=== PATIENT | male | born 1945 | race Caucasian/White ===

== ENCOUNTER 2017-05-27 09:30 | Inpatient (IN) | payer BC, OTHER ==
[~2017-05-27] VITALS: Ht 172.7 cm; Wt 98.9 kg
[2017-05-27 09:35] VITALS: BP_SYST 170
[2017-05-27] MEDS ORDERED: ROSU10TA PO (09:57)
[2017-05-27 10:17] LABS: BASOPHILS % (AUTO) 0.3 % (0.0-2.0); EOSINOPHILS # (AUTO) 0.2 K/uL (0.0-0.4); EOSINOPHILS % (AUTO) 4.2 % (0.0-4.0); HEMATOCRIT 50.1 % (36-54); HEMOGLOBIN 16.3 g/dL (14.0-18.0); LYMPHOCYTES # (AUTO) 2.2 K/uL (1.0-5.5); LYMPHOCYTES % (AUTO) 38.9 % (20.5-51.5); MEAN CORPUSCULAR HEMOGLOBIN 30 pg (27-31); MEAN CORPUSCULAR HGB CONC 33 % (32-36); MEAN CORPUSCULAR VOLUME 92 fL (79.0-98.0); MONOCYTES # (AUTO) 0.4 K/uL (0.0-1.0); MONOCYTES % (AUTO) 6.2 % (1.7-9.3); NEUTROPHILS # (AUTO) 2.9 K/uL (1.8-7.7); NEUTROPHILS % (AUTO) 50.4 % (40.0-70.0); PLATELET COUNT (AUTO) 252 K/uL (130-430); RED BLOOD CELL COUNT(AUTO) 5.46 MIL/uL (4.2-6.2); RED CELL DISTRIBUTION WIDTH 13.4 % (9.0-15.0); WHITE BLOOD COUNT (AUTO) 5.7 K/uL (4.8-10.8)
[2017-05-27 10:29] LABS: PROTHROMBIN TIME 9.7 SECS (9.5-12.5)
[2017-05-27] MEDS ORDERED: ASPIRIN 81 MG TAB.CHEW PO ONE (10:45)
[2017-05-27 11:00] LABS: ALBUMIN 4.1 g/dL (3.4-4.8); CALCIUM 9.7 mg/dL (8.4-11.0); CREATININE 0.98 mg/dL (0.55-1.30); FREE T4 (FREE THYROXINE) 0.9 ng/dl (0.8-1.5); POTASSIUM 3.6 mmol/L (3.5-5.1); TOTAL BILIRUBIN 0.4 mg/dL (0.0-1.0)
[2017-05-27 11:47] LABS: BILIRUBIN,URINE NEGATIVE (NEGATIVE); BLOOD, URINE NEGATIVE (NEGATIVE); CLARITY/URINE CLEAR (CLEAR); COLOR,URINE YELLOW (YELLOW); GLUCOSE,URINE NEGATIVE (NEGATIVE); KETONES,URINE NEGATIVE (NEGATIVE); LEUKOCYTE ESTERASE ,URINE NEGATIVE (NEGATIVE); NITRITE, URINE NEGATIVE (NEGATIVE); PROTEIN URINE NEGATIVE (NEGATIVE); UROBILINOGEN,URINE 0.2 (0.2-1.0)
[2017-05-27 12:02] LABS: BARBITURATE, URINE NEGATIVE (NEG <=200); BENZODIAZEPINE, URINE NEGATIVE (NEG <=150); CANNABINOID, URINE NEGATIVE (NEG <=50); COCAINE, URINE NEGATIVE (NEG <=150); METHAMPHETAMINES SCREEN,URINE NEGATIVE (NEG <=500); OPIATE, URINE NEGATIVE (NEG <=100); PHENCYCLIDINE SCREEN,URINE NEGATIVE (NEG <=25); URINE AMPHETAMINE NEGATIVE (NEG <=500); URINE METHADONE NEGATIVE (NEG <=200); URINE OXYCODONE SCREEN NEGATIVE (NEG <=100)
[2017-05-27 12:03] LABS: UR TRICYCLIC ANTIDEPRESSANTS NEGATIVE (NEG <=300); URINE PROPOXYPHENE SCREEN NEGATIVE (NEG <=300)
[2017-05-27 12:06] VITALS: BP_SYST 135
[2017-05-27] MEDS ORDERED: ASPI-1047 PO (12:17)
[2017-05-27] MEDS: SIMVASTATIN 20 MG TABLET PO SCH (14:30)
[2017-05-27 16:52] VITALS: BP_SYST 141
[2017-05-27 20:00] VITALS: BP_SYST 142
[2017-05-27] MEDS: METOPROLOL TARTRATE 25 MG TABLET PO SCH (21:24)
[2017-05-27] MEDS: ENOXAPARIN SODIUM 40 MG/0.4 ML SYRINGE SUBCUT SCH (21:25)
[2017-05-28] VITALS: BP_SYST 122
[2017-05-28 04:00] VITALS: BP_SYST 130
[2017-05-28 08:00] VITALS: BP_SYST 141
[2017-05-28] MEDS: METOPROLOL TARTRATE 25 MG TABLET PO SCH ×2 (08:17→20:49)
[2017-05-28] MEDS: ASPIRIN 81 MG TABLET(ECOTRIN) PO SCH (08:18)
[2017-05-28] MEDS: SIMVASTATIN 20 MG TABLET PO SCH (08:18)
[2017-05-28] MEDS ORDERED: ROSUVASTATIN CALCIUM 5 MG/TAB (CRESTOR) PO SCH (09:00)
[2017-05-28 11:40] VITALS: BP_SYST 132
[2017-05-28 16:34] VITALS: BP_SYST 135
[2017-05-28 20:00] VITALS: BP_SYST 140
[2017-05-28] MEDS: ENOXAPARIN SODIUM 40 MG/0.4 ML SYRINGE SUBCUT SCH (20:48)
[2017-05-29 00:38] VITALS: BP_SYST 129
[2017-05-29 04:56] VITALS: BP_SYST 123
[2017-05-29 08:05] VITALS: BP_SYST 135
[2017-05-29] MEDS: SIMVASTATIN 20 MG TABLET PO SCH (09:56)
[2017-05-29] MEDS: METOPROLOL TARTRATE 25 MG TABLET PO SCH (09:56)
[2017-05-29] MEDS: ASPIRIN 81 MG TABLET(ECOTRIN) PO SCH (09:56)
[2017-05-29 12:10] VITALS: BP_SYST 120
[2017-05-29 16:48] VITALS: BP_SYST 127
[2017-05-29 17:45] VITALS: BP_SYST 127
== END 2017-05-29 18:10 | disposition home or self-care (01) | DRG 312 ==
LOC: SED 09:30 → STU 11:44
PROVIDERS: ADMIT Family Medicine; ATTEND Family Medicine
DX: R55 Syncope and collapse (principal); E78.5 Hyperlipidemia, unspecified; W18.30XA Fall on same level, unspecified, initial encounter; I10 Essential (primary) hypertension; M19.90 Unspecified osteoarthritis, unspecified site
CPT/HCPCS: 36415; 70450-TC; 71010; 74000-TC; 80053; 80307; 81003; 82140-TC; 82962; 83605; 83880; 84439; 84484; 85025; 85610-TC; 87040-TC; 93005; 93880; 95816; 99285; G0482; J1650

== ENCOUNTER 2022-03-11 11:46 | Outpatient (CLI) | payer OTHER, MEDICARE ==
[~2022-03-11 11:46] MED LIST: ASPI-1047 PO; ROSU10TA2 PO
== END 2022-03-11 18:40 | disposition home or self-care (01) ==
LOC: SRD 11:46
PROVIDERS: ATTEND Family Medicine
DX: S69.92XA Unspecified injury of left wrist, hand and finger(s), initial encounter (principal); X58.XXXA Exposure to other specified factors, initial encounter; Y93.89 Activity, other specified; Y92.89 Other specified places as the place of occurrence of the external cause; Y99.8 Other external cause status